=== PATIENT | male | born 1955 | race Caucasian/White ===

== ENCOUNTER 2019-05-28 10:35 | Emergency (ER) | payer OTHER ==
[~2019-05-28] VITALS: Ht 175.3 cm; Wt 59.9 kg
--- NOTE | 2019-05-28 10:42 | NUR ---
patient [id number], form [facility], c/o abd pain since last night, -nausea vomiting and diarrhea. On room air, brething evenly and unlabored. will continue to monitor accordingly.
[2019-05-28] MEDS ORDERED: MORPHINE SULFATE INJ 2 MG/ML DISP.SYRIN IV ONE (11:00)
[2019-05-28] MEDS ORDERED: ONDANSETRON HCL/PF 4 MG/2 ML VIAL IVP ONE (11:00)
[2019-05-28] MEDS ORDERED: MORPHINE SULFATE INJ 4 MG/ML DISP.SYRIN ONE (11:01)
[2019-05-28] MEDS ORDERED: ONDANSETRON HCL/PF 4 MG/2 ML VIAL ONE (11:01)
[2019-05-28 11:02] LABS: BASOPHILS # (AUTO) 0.1 /CMM (0.0-0.2); BASOPHILS % (AUTO) 1.3 % (0.0-2.0); EOSINOPHILS % (AUTO) 2.9 % (0.0-6.0); HEMATOCRIT 42 % (39-51); HEMOGLOBIN 14.2 g/dL (13.5-17.5); LYMPHOCYTES # (AUTO) 2.1 /CMM (0.8-4.8); LYMPHOCYTES % (AUTO) 35.8 % (20.0-44.0); MEAN CORPUSCULAR HGB CONC 34 g/dl (31.0-36.0); MEAN CORPUSCULAR VOLUME 108 fL (80-96); MONOCYTES # (AUTO) 0.7 /CMM (0.1-1.30); MONOCYTES % (AUTO) 12.8 % (2.0-12.0); NEUTROPHILS # (AUTO) 2.7 /CMM (1.8-8.9); NEUTROPHILS % (AUTO) 47.2 % (43.0-81.0); PLATELET COUNT (AUTO) 154 /CMM (150-450); RED BLOOD CELL COUNT(AUTO) 3.89 MIL/uL (4.5-6.0); WHITE BLOOD COUNT (AUTO) 5.7 K/uL (4.3-11.0)
[2019-05-28 11:47] LABS: BILIRUBIN,TOTAL 0.9 mg/dL (0.2-1.0); CALCIUM, SERUM 9.7 mg/dL (8.5-10.1); CREATININE 0.9 mg/dL (0.6-1.3)
[2019-05-28 11:48] LABS: ALBUMIN 3.8 g/dL (3.4-5.0); BILIRUBIN,DIRECT 0.3 mg/dL (0.0-0.2); TOTAL PROTEIN, SERUM 8.1 g/dL (6.4-8.2)
--- NOTE | 2019-05-28 13:04 | NUR ---
called [facility] spoke to ROSE Deshpande [id number], ticket # [id number]
--- NOTE | 2019-05-28 13:47 | NUR ---
REPORT GIVEN TO NASIMA AT [facility]. PATIENT INS TABLE CONDITION. Patient discharged to [facility] in stable condition. Written and verbal after care instructions given. Patient verbalizes understanding of instruction.
[2019-05-28 13:48] VITALS: BP 110/85
[2019-05-28] MEDS ORDERED: THIA100T88 PO (17:13)
[2019-05-28] MEDS ORDERED: FURO-144 PO (17:13)
[2019-05-28] MEDS ORDERED: SPIR50TA PO (17:13)
[2019-05-28] MEDS ORDERED: MIRT15TA7 PO (17:13)
[2019-05-28] MEDS ORDERED: OMEP40CA13 PO (17:13)
[2019-05-28] MEDS ORDERED: LORA-259 PO (17:15)
[2019-05-28] MEDS ORDERED: FOLI0.8T PO (17:15)
[2019-05-28] MEDS ORDERED: TEMA15CA PO (17:15)
[2019-05-30] MEDS ORDERED: ASPI-1169 PO (10:42)
== END 2019-05-28 13:48 ==
LOC: ER 10:40
DX: K74.60 Unspecified cirrhosis of liver (principal); F32.9 Major depressive disorder, single episode, unspecified; F41.9 Anxiety disorder, unspecified; F20.9 Schizophrenia, unspecified; Z79.82 Long term (current) use of aspirin; Z79.899 Other long term (current) drug therapy
CPT/HCPCS: 36415; 74177; 80048; 80076; 83605; 83690; 85025; 85730; 87040 ×2; 96374; 96375; 99285; J2270; J2405

== ENCOUNTER 2019-05-28 15:14 | Inpatient (IN) | payer OTHER ==
[~2019-05-28] VITALS: Ht 177.8 cm; Wt 58.5 kg
--- NOTE | 2019-05-28 15:25 | NUR ---
ANABELA 38, FROM [facility], C/O ABD PAIN. PT AAOX4, VSS. DENIES CP, SOB, DIZZINESS, N/V/D @ THIS TIME. AWAITING EVAL BY CALLIE/PA. WILL CONT TO MONITOR.
[2019-05-28] MEDS ORDERED: MORPHINE SULFATE INJ 2 MG/ML DISP.SYRIN IV ONE ×2 (16:00→16:30)
[2019-05-28] MEDS ORDERED: ONDANSETRON HCL/PF 4 MG/2 ML VIAL IVP ONE (16:00)
[2019-05-28] MEDS ORDERED: IV NS 0.9% 1,000 ML BAG IV ONE ×2 (16:00→17:00)
[2019-05-28] MEDS ORDERED: ONDANSETRON HCL/PF 4 MG/2 ML VIAL ONE (16:25)
[2019-05-28] MEDS ORDERED: MORPHINE SULFATE INJ 4 MG/ML DISP.SYRIN ONE (16:25)
[2019-05-28] MEDS ORDERED: MORPHINE SULFATE INJ 10 MG/ML DISP.SYRIN IM ONE (16:30)
[2019-05-28] MEDS ORDERED: ONDANSETRON HCL/PF - ER 4 MG/2 ML VIAL IV ONE (17:00)
[2019-05-28 17:11] LABS: B-TYPE NATRIURETIC PEPTIDE 47 PG/ML (0-125)
[2019-05-28] MEDS ORDERED: MIRT15TA7 PO (17:13)
[2019-05-28] MEDS ORDERED: THIA100T88 PO (17:13)
[2019-05-28] MEDS ORDERED: SPIR50TA PO (17:13)
[2019-05-28] MEDS ORDERED: OMEP40CA13 PO (17:13)
[2019-05-28] MEDS ORDERED: FURO-144 PO (17:13)
[2019-05-28] MEDS ORDERED: FOLI0.8T PO (17:15)
[2019-05-28] MEDS ORDERED: LORA-259 PO (17:15)
[2019-05-28] MEDS ORDERED: TEMA15CA PO (17:15)
--- NOTE | 2019-05-28 17:53 | NUR ---
NURSING SUP CALLED GAVE BED [phone].
--- NOTE | 2019-05-28 19:11 | NUR ---
EPIC paged, awaiting call from Dr. Victor for panel call
--- NOTE | 2019-05-28 19:42 | NUR ---
PT STABLE, NAD NOTED @ THIS TIME. WILL CONT TO MONITOR.
[2019-05-28 20:00] VITALS: BP 123/80
--- NOTE | 2019-05-28 20:00 | NUR ---
REPORT GIVEN TO KRISTIAN WARNER FOR JACEK.
[2019-05-28 20:20] VITALS: BP 123/80
--- NOTE | 2019-05-28 20:20 | NUR ---
TELE/RN NEW ADMISSION NOTES RECEIVED PATIENT ON A GURNEY ACCOMPANIED BY ER ATTENDANT, PATIENT IS ALERT, ORIENTED X3, ABLE TO VERBALIZE NEEDS, RESPIRATIONS EVEN AND UNLABORED, REPORTED PAIN OF 10/10 IN ABDOMEN, PATIENT ADMITTING MD VITO, WITH DX CHEST PAIN AND SYNCOPE. PATIENT ABLE TO AMBULATE WITH UNSTEADY GAIT. BELONGINGS CHECKED, REPORTED DAUGHTER IN [place], AND CAME FROM [facility], PREFER TO LIVE IN [place] WITH . CONTACTED AT [phone] [facility], PER PATIENT WANT TO BE DNR CODE AND TO F/U WITH MD IN AM. HOME MEDS REPORTED. NO SKIN ISSUES. LOVENOX, ASPITIN AND MORPHINE TO BE GIVEN PER MD ORDDER. ON TELE MONITOR AT S[facility]YTHM 83 WITH BBB.
[2019-05-28] MEDS ORDERED: ZOLPIDEM TARTRATE 5 MG TABLET PO PRN (21:30)
[2019-05-28] MEDS ORDERED: ONDANSETRON HCL/PF 4 MG/2 ML VIAL IVP PRN (21:30)
[2019-05-28] MEDS ORDERED: ACETAMINOPHEN 325 MG TABLET PO PRN (21:30)
[2019-05-28] MEDS ORDERED: HYDROCODONE/APAP 5/325MG 1 EACH TABLET PO PRN (21:30)
[2019-05-28] MEDS ORDERED: MAGNESIUM HYDROXIDE 30 ML UDC PO PRN (21:30)
[2019-05-28] MEDS ORDERED: Z GUARD REMEDY 2 OZ OINT TP PRN (21:30)
[2019-05-28] MEDS ORDERED: MAG HYDROX/AL HYDROX/SIMETH 30 ML UDC PO PRN (21:30)
[2019-05-28] MEDS: ASPIRIN 81 MG TAB.CHEW PO SCH (21:45)
[2019-05-28] MEDS: MORPHINE SULFATE INJ 2 MG/ML DISP.SYRIN IV PRN (21:45)
[2019-05-28 21:50] VITALS: BP 123/80
[2019-05-28] MEDS: ENOXAPARIN SODIUM 30 MG/0.3 ML DISP.SYRIN SQ SCH (21:50)
[2019-05-29] VITALS: BP 112/72
[2019-05-29] MEDS: MORPHINE SULFATE INJ 2 MG/ML DISP.SYRIN IV PRN ×5 (02:12→20:21)
--- NOTE | 2019-05-29 02:17 | NUR ---
TELE/RN NOTES PATIENT REORTD PAIN 8/10 IN ABDOMEN, BLOOD PRESSURE CHECKE AT 105/68. ABLE TO TOLERAT SNACKS. HAD MILK AND SANDWICH. WILL MONITOR FOR PAIN REL;IEF, MORPINE 2MG IVP GIVEN,
[2019-05-29 04:00] VITALS: BP 108/68
[2019-05-29 05:12] VITALS: BP_SYST 108; BP_SYST 110; BP_SYST 99; BP_DIAS 60; BP_DIAS 68; BP_DIAS 71
--- NOTE | 2019-05-29 06:56 | NUR ---
TELE/RN NOTES PATIENT ABLE TO SLEEP DURING THE NIGHT, REPORTED PAIN , HAD LOW BLOOD PRESSURE READING AND ASK TO DRINK WATER, NOT TO GET UP SUDDENLY.MONITORED FOR ORTHOSTATIC HYPOTENSION. BED LOCKED CALL LIGHTS WITHIN REACH, WILL MONITOR.
[2019-05-29 06:59] LABS: BASOPHILS # (AUTO) 0.1 /CMM (0.0-0.2); BASOPHILS % (AUTO) 2.3 % (0.0-2.0); EOSINOPHILS % (AUTO) 5.1 % (0.0-6.0); HEMATOCRIT 33 % (39-51); HEMOGLOBIN 11.2 g/dL (13.5-17.5); LYMPHOCYTES # (AUTO) 1.8 /CMM (0.8-4.8); LYMPHOCYTES % (AUTO) 41.6 % (20.0-44.0); MEAN CORPUSCULAR HGB CONC 34 g/dl (31.0-36.0); MEAN CORPUSCULAR VOLUME 108 fL (80-96); MONOCYTES # (AUTO) 0.7 /CMM (0.1-1.30); MONOCYTES % (AUTO) 16.4 % (2.0-12.0); NEUTROPHILS # (AUTO) 1.5 /CMM (1.8-8.9); NEUTROPHILS % (AUTO) 34.6 % (43.0-81.0); PLATELET COUNT (AUTO) 108 /CMM (150-450); RED BLOOD CELL COUNT(AUTO) 3.01 MIL/uL (4.5-6.0); WHITE BLOOD COUNT (AUTO) 4.2 K/uL (4.3-11.0)
[2019-05-29 07:09] LABS: CALCIUM, SERUM 9.1 mg/dL (8.5-10.1); CREATININE 0.8 mg/dL (0.6-1.3); MAGNESIUM 1.6 mg/dL (1.8-2.4); PHOSPHORUS 4.3 mg/dL (2.5-4.9)
--- NOTE | 2019-05-29 07:21 | NUR ---
RN OPENING NOTES RECEIVED PATIENT IN BED RESTING. A/OX3, ABLE TO MAKE NEEDS KNOWN. NOT IN NAY FORM OF DISTRESS. NO SOB. COMPLAINTS OF ABDOMINAL PAIN, WILL ADMINISTER PAIN MEDS ORDERED. IV ACCESS INTACT AND PATENT. ON TELEMONITOR SR 86. SAFETY MEASURES INITIATED. NEEDS ATTENDED. BED IN LOW/LOCKED POSITION, SIDERAILS UPX2, CALL LIGHT IN REACH. BED ALARM ON FOR SAFETY. WILL CONT TO MONITOR ACCORDINGLY.
[2019-05-29 07:32] LABS: THYROID STIMULATING HORMONE 3.178 uIU/mL (0.358-3.74)
[2019-05-29 07:39] LABS: FREE PSA < 0.06 ng/mL (0.00-45); PROSTATE SPECIFIC ANTIGEN SCR 0.14 ng/mL (0.00-4.00)
[2019-05-29 07:57] LABS: BAND % (MANUAL) 2 % (0.0-5.0); EOSINOPHILS % (MANUAL) 5 % (0-4); LYMPHOCYTES % (MANUAL) 40 % (16-48); MONOCYTES % (MANUAL) 14 % (0-11.0); NEUTROPHILS % (MANUAL) 39 (42-76)
[2019-05-29 08:00] VITALS: BP 110/68
[2019-05-29] MEDS: ASPIRIN 81 MG TAB.CHEW PO SCH (08:05)
[2019-05-29] MEDS ORDERED: ALBUTEROL FS 2.5 MG/3 ML VIAL.NEB NEB PRN (11:00)
--- NOTE | 2019-05-29 11:31 | NUR ---
RN NOTES DR WINTER AT BEDSIDE DISCUSSING POC. ORDERED TO AMBULATE PATIENT AND TEST HOW HE DOES WITH AMBULATING.
--- NOTE | 2019-05-29 11:34 | NUR ---
RN NOTES AMBULATED PATIENT FEW METERS, PATIENT DID NOT TOLERATE PATIENT FELT DIZZY. SAT PATIENT DOWN TO WHEELCHAIR AND WHEELED BACK TO HIS ROOM. BACK TO BED IN SEMIFOWLERS, PATIENT STATED HE'S OK NOW. GREER CORONEL
[2019-05-29] MEDS: Magnesium 1GM/D5W 100ML PREMIX 100 ML IV SCH ×2 (12:15→13:24)
--- NOTE | 2019-05-29 15:46 | NUR ---
rn notes midline inserted by rocio andre. patient tolerated well. midline right upper arm intact and patent.
[2019-05-29 17:58] VITALS: BP 116/68
--- NOTE | 2019-05-29 19:07 | NUR ---
RN CLOSING NOTES PATIENT IN STABLE CONDITION. ALL NEEDS ATTENDED AND PROVIDED. ALL DUE MEDICATIONS GIVEN ORDERED. SAFETY MEASURES IN PLACE. BED IN LOW/LOCKED POSITION, SIDERAILS UPX2, CALL LIGHT IN REACH. WILL ENDORSED TO NIGHT RN FOR JACEK. Addendum: 05/29/19 at 1925 by ERNESTINA ROSS endorsed to rocio wilcox
[2019-05-29 20:10] VITALS: BP 114/73
[2019-05-29] MEDS: ENOXAPARIN SODIUM 30 MG/0.3 ML DISP.SYRIN SQ SCH (20:54)
[2019-05-30] VITALS: BP 112/74
[2019-05-30] MEDS: MORPHINE SULFATE INJ 2 MG/ML DISP.SYRIN IV PRN ×4 (00:27→15:27)
[2019-05-30 04:02] VITALS: BP 109/72
--- NOTE | 2019-05-30 06:14 | NUR ---
EMPLOYEE DEVELOPMENT MANAGER NOTES AWAKE & RESPONSIVE. NOT IN ANY DISTRESS. NO SOB NOTED. DENIES ANY PAIN OR DISCOMFORT AT THIS TIME. ON TELE SR WITH BBB @ 72 WITH IV-HL PATENT & INTACT. MONITORED ACCORDINGLY. CALL LIGHT WITHIN REACH. BED IN LOWEST POSITION. SR UP X 2 FOR SAFETY. WILL ENDORSE TO NEXT SHIFT.
--- NOTE | 2019-05-30 07:24 | NUR ---
Tele/RN Opening Note Patient is resting in bed, A/O x4, showing no signs of acute distress or SOB, saturating well on RA. Tele monitor SR 76. IV BLANCA midline S/L is clean and intact. Bed is in lowest position, side rails x2 in upright position. Call light is within reach and patient is aware of how to call for assistance when needed. Will continue will plan of care.
[2019-05-30 08:00] VITALS: BP 100/73
[2019-05-30] MEDS: ASPIRIN 81 MG TAB.CHEW PO SCH (09:00)
[2019-05-30 09:49] VITALS: BP 100/73
[2019-05-30] MEDS ORDERED: ASPI-1169 PO (10:42)
[2019-05-30] MEDS ORDERED: LABETALOL 20 MG/4 ML VIAL IV ONE (11:00)
[2019-05-30] MEDS ORDERED: TEMAZEPAM 15 MG CAPSULE PO PRN (11:00)
--- NOTE | 2019-05-30 11:00 | NUR ---
RN notes held labetalol because patient went down for CTA.
[2019-05-30] MEDS ORDERED: IV NS 0.9% 250 ML IV ONE (11:16)
[2019-05-30] MEDS ORDERED: IOHEXOL-350 100 ML VIAL IV ONE ×2 (11:16→12:22)
[2019-05-30] MEDS ORDERED: METOPROLOL TARTRATE INJ 5 MG/5 ML AMPUL ONE (11:16)
[2019-05-30] MEDS ORDERED: NITROGLYCERIN 0.4 MG/TAB BOTTLE ONE (11:16)
[2019-05-30] MEDS ORDERED: CT SWABBABLE VALVE TRANS SET 1 EA INFUS.SET MC ONE (11:16)
[2019-05-30] MEDS ORDERED: IV NS 0.9% 500 ML IV ONE (11:27)
[2019-05-30] MEDS: ENSURE ENLIVE CHOC 237 ML CAN PO SCH ×2 (13:59→16:44)
--- NOTE | 2019-05-30 15:01 | NUR ---
LORRAINE was informed by distillery manager Musa that pt. was admitted to [facility] from [facility]. Pt. would like to go back to [facility] once medically cleared. LORRAINE contacted Chris at [facility] who informed LORRAINE that Aleta from [facility] intake will be contacting LORRAINE to get information on the patient and that they will get a bed for the pt.
--- NOTE | 2019-05-30 15:29 | NUR ---
RN NOTES PT C/O OF ACHING THROBBING MID ABDOMINAL PAIN WITH SCALE OF 8/10, PRN MORPHINE 2MG/1ML IVP ADMINISTERED AT 1427. WILL CONTINUE TO MONITOR ANFD REASSESS PT.
--- NOTE | 2019-05-30 15:44 | NUR ---
LORRAINE received a call from Aleta at [facility] intake requesting for LORRAINE to fax clinicals. Clinicals were faxed to [facility] intake .
[2019-05-30 16:00] VITALS: BP 100/60
[2019-05-30 16:17] VITALS: BP_SYST 100; BP_SYST 90; BP_SYST 94; BP_DIAS 56; BP_DIAS 62; BP_DIAS 69
--- NOTE | 2019-05-30 16:19 | NUR ---
RN Notes cleared for discharge Notified Nella Steward NP about patient's CTA result and she cleared the patient for DC by as long as he is cleared by Dr. Villela. Spoke with Dr. Villela and obtained orthostatic BP: Supine 11/62 HR 83, sitting 94/69 HR 83, standing 90/[address] Villela cleared patient for DC. Notified Stamping Operator Musa that patient is cleared for DC, awaiting discharge progress notes from Nella Steward NP.
[2019-05-30] MEDS ORDERED: FUROSEMIDE 40 MG TABLET PO SCH (17:00)
--- NOTE | 2019-05-30 17:28 | NUR ---
RN DISCHARGED NOTES BUTCHER CAME AND SPOKE TO PATIENT WITH VERBALIZATION THAT HE HAS FAMILY TO GO TO [place] AND NEEDS TAP CARD TO GO THERE. PT DISCHARGED HOME INSTABLE CONDITION. VS WNL. SKIN IS INTACT. BLANCA MIDLINE REMOVED, ID BAND REMOVED. ALL NEEDS MET, ALL DUE MEDS GIVEN. DISCHARGE INSTRUCTIONS GIVEN, PATIENT VERBALIZES UNDERSTANDING, BUT REFUSED TO TAKE THE DISCHARGE FOLDER DESPITE GIVEN INSTRUCTIONS THAT HE NEEDS IT TO GIVE TO PCP. PATIENT LEFT UNIT ACCOMPANIED BY GRACE HINKLE.
[2019-05-30] MEDS ORDERED: MIRTAZAPINE 15 MG TABLET PO SCH (22:00)
[2019-05-31] MEDS ORDERED: PANTOPRAZOLE 40 MG TABLET.DR PO SCH (07:30)
[2019-05-31] MEDS ORDERED: THIAMINE HCL 100 MG TABLET PO SCH (09:00)
[2019-05-31] MEDS ORDERED: SPIRONOLACTONE 50 MG TABLET PO SCH (09:00)
[2019-05-31] MEDS ORDERED: FOLIC ACID 1 MG TABLET PO SCH (09:00)
[2019-05-31] MEDS ORDERED: SPIRONOLACTONE 25 MG TABLET PO SCH (09:00)
== END 2019-05-30 17:30 | disposition home or self-care (01) | DRG 140 ==
LOC: ER 15:17 → TELE 19:11 → MED 05-30 11:35
PROVIDERS: ADMIT Student in an Organized Health Care Education/Training Program; ATTEND Registered Nurse
PROC: 05HB33Z Insertion of Infusion Device into Right Basilic Vein, Percutaneous Approach (ICD-10-PCS; principal; 2019-05-29)
DX: J44.1 Chronic obstructive pulmonary disease with (acute) exacerbation (principal); D69.6 Thrombocytopenia, unspecified; K70.30 Alcoholic cirrhosis of liver without ascites; F20.9 Schizophrenia, unspecified; R07.89 Other chest pain; F32.9 Major depressive disorder, single episode, unspecified; F41.9 Anxiety disorder, unspecified; Z59.0 Homelessness; J44.9 Chronic obstructive pulmonary disease, unspecified; F29 Unspecified psychosis not due to a substance or known physiological condition; Z79.899 Other long term (current) drug therapy; I70.0 Atherosclerosis of aorta; F17.200 Nicotine dependence, unspecified, uncomplicated; F10.10 Alcohol abuse, uncomplicated; Z99.3 Dependence on wheelchair; Z90.49 Acquired absence of other specified parts of digestive tract; Z82.49 Family history of ischemic heart disease and other diseases of the circulatory system; Z80.0 Family history of malignant neoplasm of digestive organs; Z79.82 Long term (current) use of aspirin; Y90.9 Presence of alcohol in blood, level not specified; R55 Syncope and collapse; B19.20 Unspecified viral hepatitis C without hepatic coma; D53.9 Nutritional anemia, unspecified; N28.1 Cyst of kidney, acquired
CPT/HCPCS: 36415; 75574; 80048-TC; 80061-TC; 83735-TC; 83880; 84100-TC; 84153-TC; 84154-TC; 84443-TC; 84484-TC; 85025-TC; 87081-TC; 93307-TC; 97116-TC; 97530-TC; G0378; J1650; J2270; J2405; J3475; J3490; J7030; J7040; J7050; Q9967